=== PATIENT | male | born 1945 | race Caucasian/White ===

== ENCOUNTER 2020-08-16 17:13 | Inpatient (IN) ==
--- NOTE | 2020-08-16 17:50 | DR.DIZZY ---
HPI Time seen Time Seen by Provider: 08/16/20 17:50 PCP Primary Care Physician: MELVI HPI Comment HPI Comment: PATIENT IS 74YR OLD MALE WHO IS VOVID 19 POSITIVE IS IN ER WITH AMS, GENERALIZED WEAKNESS AND FATIGUE TIMES Complaint Chief Complaint Doctor Comments: AMS, GENERALIZED WEAKNESS AND COVID 19 POSITIVE. Chief Complaint:: PT'S FAMILY C/O PT HAS BEEN VERY LETHARGIC, WEAK TODAY. PT'S FAMILY STATES HE WAS ESTED ON Jul AND WAS POSITIVE. PT'S DAUGHTER STATES HIS MEMORY IS GETTING WORSE AND HE HAS STAGE 4 KIDNEY FAILURE. COVID-19 Coronavirus risk:travel/contact w/high risk person: No Has patient experienced Coronavirus symptoms: No Nurses Notes Reviewed Nurses Notes Review: Yes Source History Provided: Patient Mode of Arrival Mode of Arrival: Ambulatory Timing Onset of Chief Complaint: 08/15/20 Came on: Suddenly Duration Duration: Constant Duration: Days Location of Weakness Weakness Location: Generalized Context Onset: At rest Does pt take pot. toxic medication?: No Severity Severity: Normal activity level Modifying factors Worsens: Change in Position Associated signs and symptoms Associated Signs and Symptoms: Near Syncope and Weak PMH PMH Past Medical History: Yes Past Medical History: COPD, Dyslipidemia, GERD, Hypertension, Renal Disease and Sleep Apnea Past Surgical History: Yes Surgical History: Angioplasty/Stents Family History History of Family Medical Conditions: No Social History Does any household member use tobacco: Yes Alcohol Use: None Do you use any recreational Drugs:: No Lives With: Alone Lives Where: Home Travel Risk Coronavirus risk:travel/contact w/high risk person: No Has patient experienced Coronavirus symptoms: No Infectious screening In the last 2 months have you had wt loss of >10#?: NO Have you had fever, night sweats or hemotysis?: No Have you traveled outside the country in the last 6 months?: No Isolation: Standard ROS Review of Systems Constitutional: No Symptoms Reported and See HPI Eyes: No Symptoms Reported and See HPI ENTM: No Symptoms Reported and See HPI Respiratoy: No Symptoms Reported and See HPI Cardiovascular: No Symptoms Reported and See HPI Gastrointestinal/Abdominal: No Symptoms Reported and See HPI Genitourinary: No Symptoms Reported and See HPI Neurological: No Symptoms Reported and See HPI Musculoskeletal: No Symptoms Reported and See HPI Integumentary: No Symptoms Reported and See HPI Hematologic/Lymphatic: No Symptoms Reported and See HPI Endocrine: No Symptoms Reported and See HPI Psychiatric: No Symptoms Reported and See HPI All Other Systems: Reviewed and Negative PE Vital Signs Vitals: Temperature 97.6 F Pulse Rate 63 Respiratory Rate 24 Blood Pressure 137/69 O2 Sat by Pulse Oximetry 96 General Limitations: No Limitations General Appearance: Alert and In No Apparent Distress Head Head Exam: Normal Inspection Eyes Eye exam: Normal Appearance ENT ENT Exam: Normal Exam, Normal Oropharynx and Normal External Ear Exam Neck Neck Exam: Normal Inspection and Full ROM Chest Chest Inspection: Normal Inspection Respiratory Respiratory Exam: Normal Lung Sounds Bilat Cardiovascular Cardiovascular Exam: Regular Rate and Normal Rhythm Abdominal Exam Abdominal Exam: Normal Inspection, Normal Bowel Sounds and Soft Rectal Rectal Exam: Deferred Extremeties Extremities Exam: Normal Inspection and Full ROM Back Back Exam: Normal Inspection and Full ROM Neurologic Neurological Exam: Alert and Oriented X3 Psychiatric Psychiatric Exam: Normal Affect and Normal Mood Skin Skin Exam: Warm, Dry, Intact and Normal Color ROR Labs Reviewed Result Diagrams: 08/18/20 04:40 08/18/20 04:40 Laboratory: 08/16/20 20:24 Blood Blood Culture - Preliminary 08/16/20 20:20 Blood Blood Culture - Preliminary 08/16/20 20:30 Urine,Clean Catch Urine Culture - Final WBC 20.5 X10^3/uL (3.6-10.0) H 08/16/20 18:37 RBC 4.54 X10^6/uL (4.7-6.0) L 08/16/20 18:37 Hgb 13.2 g/dL (13.5-18.0) L 08/16/20 18:37 Hct 39.9 % (42.0-54.0) L 08/16/20 18:37 MCV 87.8 fL (80.0-100.0) 08/16/20 18:37 MCH 29.0 pg (27.0-34.0) 08/16/20 18:37 MCHC 33.0 g/dL (33.0-35.0) 08/16/20 18:37 RDW 14.1 % (11.6-16.5) 08/16/20 18:37 Plt Count 197 X10^3/uL (150.0-450.0) 08/16/20 18:37 MPV 8.3 fL (7.4-11.0) 08/16/20 18:37 Neut % (Auto) 89.0 % (42.0-75.0) H 08/16/20 18:37 Lymph % (Auto) 5.0 % (21.0-51.0) L 08/16/20 18:37 [place] % (Auto) 5.6 % (0.0-13.0) 08/16/20 18:37 Eos % (Auto) 0.1 % (0.9-2.9) L 08/16/20 18:37 Baso % (Auto) 0.3 % (0.2-1.0) 08/16/20 18:37 Neut # (Auto) 18.2 x10^3/uL (2.2-4.8) H 08/16/20 18:37 Lymph # (Auto) 1.0 X10^3/uL (1.3-2.9) L 08/16/20 18:37 [place] # (Auto) 1.1 x10^3/uL (0.3-0.8) H 08/16/20 18:37 Eos # (Auto) 0.0 x10^3/uL (0.0-0.2) 08/16/20 18:37 Baso # (Auto) 0.1 X10^3/uL (0.0-0.1) 08/16/20 18:37 Absolute Nucleated RBC 0.0 /100WBC 08/16/20 18:37 Sample Site Lr 08/16/20 20:15 ABG pH 7.390 (7.35-7.45) 08/16/20 20:15 ABG pCO2 28.0 mmHg (35.0-45.0) L 08/16/20 20:15 ABG pO2 85.0 mmHg (80.0-100.0) 08/16/20 20:15 ABG HCO3 16.9 mmol/L (22-26) L* 08/16/20 20:15 ABG O2 Saturation 96.0 % (90-100) 08/16/20 20:15 ABG Base Excess -6.7 mmol/L (-2.0-2.0) L 08/16/20 20:15 Vinnie Test Pos 08/16/20 20:15 A-a Gradient 80.0 mmHg 08/16/20 20:15 FiO2 28.0 08/16/20 20:15 Blood Gas Comments Sriram well sw 08/16/20 20:15 Sodium 141 mmol/L (136-145) 08/16/20 18:37 Corrected Sodium 142 mmol/L (136-145) 08/16/20 18:37 Potassium 5.4 mmol/L (3.5-5.1) H 08/16/20 18:37 Chloride 106 mmol/L (98-107) 08/16/20 18:37 Carbon Dioxide 21.1 mmol/L (21-32) 08/16/20 18:37 BUN 74 mg/dL (7-18) H 08/16/20 18:37 Creatinine 4.21 mg/dL (0.70-1.30) H 08/16/20 18:37 Est GFR (MDRD) Af Amer 18 (>60) L 08/16/20 18:37 Est GFR (MDRD) Non-Af 15 (>60) L 08/16/20 18:37 Glucose 130 mg/dL (65-99) H 08/16/20 18:37 Lactic Acid 1.5 mmol/L (0.4-2.0) 08/16/20 20:20 Calcium 9.2 mg/dL (8.5-10.1) 08/16/20 18:37 Corrected Calcium 10.7 mg/dL (8.5-10.1) H 08/16/20 18:37 Ferritin 2701 ng/mL (26-388) H 08/16/20 18:37 Total Bilirubin 0.90 mg/dL (0.2-1.0) 08/16/20 18:37 AST 25 Units/L (15-37) 08/16/20 18:37 ALT 55 Units/L (12-78) 08/16/20 18:37 Alkaline Phosphatase 214 Units/L (46-116) H 08/16/20 18:37 Lactate Dehydrogenase 341 Units/L (85-227) H 08/16/20 18:37 Creatine Kinase 21 Units/L (39-308) L 08/16/20 18:37 CK-MB (CK-2) < 1.0 ng/mL (0-4.0) 08/16/20 18:37 CK/CKMB % Calc 4.8 % (<4) 08/16/20 18:37 Troponin I < 0.02 ng/mL (0-1.5) 08/16/20 18:37 C-Reactive Protein 202.60 mg/L (0-3.0) H 08/16/20 18:37 Total Protein 7.0 g/dL (6.4-8.2) 08/16/20 18:37 Albumin 2.1 g/dL (3.4-5.0) L 08/16/20 18:37 Globulin 4.9 g/dL (2.5-4.5) H 08/16/20 18:37 Albumin/Globulin Ratio 0.4 Ratio (1.1-2.1) L 08/16/20 18:37 Specimen Type Clean catch urine 08/16/20 20:30 Urine Color Dark yellow (YELLOW) 08/16/20 20:30 Urine Appearance Slightly hazy (CLEAR) 08/16/20 20:30 Urine pH 5.0 (5.0 - 8.0) 08/16/20 20:30 Ur Specific [place] 1.020 (1.000-1.030) 08/16/20 20:30 Urine Protein 2+ (NEGATIVE) 08/16/20 20:30 Urine Glucose (UA) Negative (NEGATIVE) 08/16/20 20:30 Urine Ketones Negative (NEGATIVE) 08/16/20 20:30 Urine Occult Blood 1+ (NEGATIVE) 08/16/20 20:30 Urine Nitrite Negative (NEGATIVE) 08/16/20 20:30 Urine Bilirubin Negative (NEGATIVE) 08/16/20 20:30 Urine Urobilinogen Normal (NORMAL) 08/16/20 20:30 Ur Leukocyte Esterase 3+ (NEGATIVE) 08/16/20 20:30 Urine RBC 5-10 /HPF (0-3) A 08/16/20 20:30 Urine WBC 20-30 /HPF (0-5) A 08/16/20 20:30 Ur Squamous Epith Cells Rare /HPF (NEGATIVE) 08/16/20 20:30 Amorphous Sediment 1+ /HPF (NEGATIVE) 08/16/20 20:30 Urine Bacteria 1+ /HPF (NEGATIVE) 08/16/20 20:30 Ur Culture Indicated? Yes/culture set up 08/16/20 20:30 Opioid Opioid Risk Tool Age (Rober box if 16-45): No History of Preadolescent Sexual Abuse: No Total: 0 Total Score Risk Category: Low Risk Copyright: Keaton MANTILLA predicting aberrant behaviors Instructions Forms: Precautions for COVID19 Patient Portal Social Distancing
[2020-08-16 18:48] LABS: BASOPHILS # (AUTO) 0.1 X10^3/uL (0.0-0.1); BASOPHILS % (AUTO) 0.3 % (0.2-1.0); EOSINOPHILS % (AUTO) 0.1 % (0.9-2.9); HEMATOCRIT 39.9 % (42.0-54.0); HEMOGLOBIN 13.2 g/dL (13.5-18.0); MEAN CORPUSCULAR VOLUME 87.8 fL (80.0-100.0); MEAN PLATELET VOLUME 8.3 fL (7.4-11.0); MONOCYTES # (AUTO) 1.1 x10^3/uL (0.3-0.8); MONOCYTES % (AUTO) 5.6 % (0.0-13.0); NEUTROPHILS # (AUTO) 18.2 x10^3/uL (2.2-4.8); PLATELET COUNT 197 X10^3/uL (150.0-450.0); RED BLOOD COUNT 4.54 X10^6/uL (4.7-6.0); RED CELL DISTRIBUTION WIDTH 14.1 % (11.6-16.5); WHITE BLOOD COUNT 20.5 X10^3/uL (3.6-10.0)
--- NOTE | 2020-08-16 18:55 | RAD ---
CHEST, 1 VIEWHISTORY: SOB, COVID +Study: AP view of the chest.Comparison:NoneFindings:The cardiomediastinal silhouette is normal. Peripheral opacities most notable involving the right lung. Multiple old left-sided rib fractures. Osseous structures demonstrate no acute abnormality. Bilateral hyperexpansion and interstitial prominence.IMPRESSION:1. Hazy peripheral right-sided opacities which may represent acute atypical infection.2. Findings of COPD.Electronically signed by: GELA MILLER (Aug 16, 2020 18:54:33)
--- NOTE | 2020-08-16 18:58 | CT ---
BRAIN W/O CONCLINICAL INDICATION: AMSTECHNIQUE: Images were obtained through the head per standard CT protocol. Multiplanar reformatted images were generated from the CT dataset. Dose reduction techniques including Automated Exposure Control (AEC) and adjustment of mA and kV were utlized.COMPARISON:None.FINDINGS:Diffuse patchy and confluent periventricular and subcortical hypoattenuation with associated volume loss. There is no evidence of acute infarction, intracranial hemorrhage, mass or mass effect, or abnormal extra-axial collection . The density of the larger dural venous sinuses is normal . Age-related, ex-vacuo dilatation of the ventricles and sulci . The skull base and calvarium are normal .The included paranasal sinuses and mastoid air cells are predominantly clear .IMPRESSION:1. No acute intracranial abnormality. Chronic microangiopathic changes and ex vacuo dilatation of the ventricles and sulci.Electronically signed by: GELA MILLER (Aug 16, 2020 18:57:08)
[2020-08-16] MEDS ORDERED: NS 1000 ML 1,000 ML ONE (20:05)
[2020-08-16 20:20] LABS: BLOOD UREA NITROGEN 74 mg/dL (7-18); CALCIUM 9.2 mg/dL (8.5-10.1); CARBON DIOXIDE 21.1 mmol/L (21-32); CHLORIDE 106 mmol/L (98-107); COR NA(FOR HYPERGLY) 142 mmol/L (136-145); CREATININE 4.21 mg/dL (0.70-1.30); SODIUM 141 mmol/L (136-145); TROPONIN I < 0.02 ng/mL (0-1.5); eGFR NON BLACK RACES 15 (>60)
[2020-08-16 20:24] LABS: ALANINE AMINOTRANSFERASE 55 Units/L (12-78); ALBUMIN 2.1 g/dL (3.4-5.0); ALKALINE PHOSPHATASE 214 Units/L (46-116); ASPARTATE AMINO TRANSFERASE 25 Units/L (15-37); CKMB % 4.8 % (<4); COR CA(FOR HYPOALB) 10.7 mg/dL (8.5-10.1); CREATINE KINASE 21 Units/L (39-308); CREATINE KINASE MB < 1.0 ng/mL (0-4.0)
[2020-08-16 20:47] LABS: BILIRUBIN,URINE NEGATIVE (NEGATIVE); BLOOD/HEMOGLOBIN,URINE 1+ (NEGATIVE); GLUCOSE, URINE NEGATIVE (NEGATIVE); KETONES,URINE NEGATIVE (NEGATIVE); LEUKOCYTE ESTERASE ,URINE 3+ (NEGATIVE); NITRITES,URINE NEGATIVE (NEGATIVE); PROTEIN,URINE 2+ (NEGATIVE); UROBILINOGEN,URINE NORMAL (NORMAL)
[2020-08-16 20:55] LABS: APPEARANCE,URINE SLIGHTLY HAZY (CLEAR); COLOR,URINE DARK YELLOW (YELLOW)
[2020-08-16 20:58] LABS: AMORPHOUS SEDIMENT,UR 1+ /HPF (NEGATIVE); BACTERIA,URINE 1+ /HPF (NEGATIVE); SQUAMOUS EPITHELIAL CELL,UR RARE /HPF (NEGATIVE)
[2020-08-16] MEDS ORDERED: NS 1000 ML 1,000 ML IV SCH (21:00)
[2020-08-16 21:16] LABS: ABG BASE EXCESS -6.7 mmol/L (-2.0-2.0)
[2020-08-16 21:17] LABS: ABG HCO3 16.9 mmol/L (22-26)
[2020-08-16 21:18] LABS: ABG ALLEN TEST POS
[2020-08-16] MEDS ORDERED: VANCOMYCIN IV *PREMIX 1 G/200 ML BAG 1 G/200 ML PIGGYBACK IV ONE (22:09)
[2020-08-16] MEDS ORDERED: VANCOMYCIN HCL ONE (23:46)
[2020-08-16] MEDS ORDERED: NS 250 ML IV 250 ML IV ONE (23:46)
[2020-08-17] MEDS: VIBRAMYCIN 100 MG in D5W 250 ML IV 250 ML IV SCH ×3 (00:10→21:44)
[2020-08-17] MEDS: NS 1000 ML 1,000 ML IV SCH ×3 (00:31→19:45)
[2020-08-17] MEDS ORDERED: VENTOLIN or PROAIR HFA ONE (00:48)
[2020-08-17] MEDS ORDERED: VENTOLIN or PROAIR HFA IN PRN (00:54)
[2020-08-17 01:07] VITALS: BMI 28.9
[2020-08-17 05:24] LABS: BASOPHILS % (AUTO) 0.2 % (0.2-1.0); EOSINOPHILS # (AUTO) 0.1 x10^3/uL (0.0-0.2); EOSINOPHILS % (AUTO) 0.4 % (0.9-2.9); HEMATOCRIT 35.4 % (42.0-54.0); HEMOGLOBIN 11.4 g/dL (13.5-18.0); LYMPHOCYTES # (AUTO) 0.9 X10^3/uL (1.3-2.9); MEAN CORPUSCULAR HEMOGLOBIN 28.9 pg (27.0-34.0); MEAN CORPUSCULAR HGB CONC 32.3 g/dL (33.0-35.0); MEAN CORPUSCULAR VOLUME 89.3 fL (80.0-100.0); MEAN PLATELET VOLUME 8.7 fL (7.4-11.0); MONOCYTES % (AUTO) 5.6 % (0.0-13.0); NEUTROPHILS # (AUTO) 15.3 x10^3/uL (2.2-4.8); NEUTROPHILS % (AUTO) 88.8 % (42.0-75.0); PLATELET COUNT 171 X10^3/uL (150.0-450.0); RED BLOOD COUNT 3.96 X10^6/uL (4.7-6.0); RED CELL DISTRIBUTION WIDTH 14.3 % (11.6-16.5); WHITE BLOOD COUNT 17.2 X10^3/uL (3.6-10.0)
[2020-08-17 05:44] LABS: ALBUMIN 1.8 g/dL (3.4-5.0); CALCIUM 8.7 mg/dL (8.5-10.1); CARBON DIOXIDE 18.6 mmol/L (21-32); COR CA(FOR HYPOALB) 10.5 mg/dL (8.5-10.1); CREATININE 3.92 mg/dL (0.70-1.30); TOTAL PROTEIN 6.3 g/dL (6.4-8.2)
[2020-08-17] MEDS ORDERED: NS 1000 ML 1,000 ML IV ONE (09:06)
[2020-08-17] MEDS: VSL#3 PO SCH (09:32)
[2020-08-17] MEDS ORDERED: TYLENOL 325 MG TAB PO PRN (09:33)
[2020-08-17] MEDS: PEPCID TAB 20 MG PO SCH (10:02)
[2020-08-17] MEDS: NORVASC TAB 5 MG PO SCH (10:02)
[2020-08-17] MEDS: FLOMAX PO SCH (10:03)
[2020-08-17] MEDS: COREG TAB 12.5 MG PO SCH ×2 (10:03→21:44)
[2020-08-17] MEDS: LOVENOX INJ 30 MG SYR SC SCH (10:03)
[2020-08-17 18:15] LABS: CALCIUM 8.8 mg/dL (8.5-10.1); CARBON DIOXIDE 21.9 mmol/L (21-32); CREATININE 3.48 mg/dL (0.70-1.30)
[2020-08-17] MEDS ORDERED: CHLORASEPTIC SPRAY MT PRN (20:02)
[2020-08-17] MEDS: BRILINTA PO SCH (21:35)
[2020-08-18] MEDS: NS 1000 ML 1,000 ML IV SCH ×2 (03:20→07:07)
[2020-08-18 04:57] LABS: BASOPHILS % (AUTO) 0.2 % (0.2-1.0); EOSINOPHILS # (AUTO) 0.1 x10^3/uL (0.0-0.2); HEMATOCRIT 36.8 % (42.0-54.0); HEMOGLOBIN 12.1 g/dL (13.5-18.0); LYMPHOCYTES # (AUTO) 0.9 X10^3/uL (1.3-2.9); LYMPHOCYTES % (AUTO) 8.6 % (21.0-51.0); MEAN CORPUSCULAR HEMOGLOBIN 29.4 pg (27.0-34.0); MEAN CORPUSCULAR VOLUME 89.1 fL (80.0-100.0); MEAN PLATELET VOLUME 8.6 fL (7.4-11.0); MONOCYTES # (AUTO) 0.7 x10^3/uL (0.3-0.8); MONOCYTES % (AUTO) 7.4 % (0.0-13.0); NEUTROPHILS # (AUTO) 8.2 x10^3/uL (2.2-4.8); NEUTROPHILS % (AUTO) 82.8 % (42.0-75.0); PLATELET COUNT 184 X10^3/uL (150.0-450.0); RED BLOOD COUNT 4.13 X10^6/uL (4.7-6.0); RED CELL DISTRIBUTION WIDTH 14.5 % (11.6-16.5); WHITE BLOOD COUNT 9.9 X10^3/uL (3.6-10.0)
[2020-08-18 05:06] LABS: ALANINE AMINOTRANSFERASE 52 Units/L (12-78); ALBUMIN 1.8 g/dL (3.4-5.0); ALKALINE PHOSPHATASE 217 Units/L (46-116); ASPARTATE AMINO TRANSFERASE 31 Units/L (15-37); BLOOD UREA NITROGEN 67 mg/dL (7-18); CALCIUM 8.7 mg/dL (8.5-10.1); CARBON DIOXIDE 20.8 mmol/L (21-32); CHLORIDE 113 mmol/L (98-107); COR CA(FOR HYPOALB) 10.5 mg/dL (8.5-10.1); CREATININE 3.47 mg/dL (0.70-1.30); SODIUM 132 mmol/L (136-145); TOTAL PROTEIN 6.3 g/dL (6.4-8.2); eGFR NON BLACK RACES 18 (>60)
[2020-08-18 05:39] LABS: PLATELET MORPHOLOGY COMMENT NORMAL (NORMAL)
[2020-08-18] MEDS: VSL#3 PO SCH (08:07)
[2020-08-18] MEDS: COREG TAB 12.5 MG PO SCH ×2 (08:07→21:05)
[2020-08-18] MEDS: VIBRAMYCIN 100 MG in D5W 250 ML IV 250 ML IV SCH ×2 (08:07→21:00)
[2020-08-18] MEDS: NORVASC TAB 5 MG PO SCH (08:08)
[2020-08-18] MEDS: FLOMAX PO SCH (08:08)
[2020-08-18] MEDS: LOVENOX INJ 30 MG SYR SC SCH (08:09)
[2020-08-18] MEDS: PEPCID TAB 20 MG PO SCH (08:09)
[2020-08-18] MEDS: BRILINTA PO SCH ×2 (08:10→21:00)
[2020-08-18] MEDS ORDERED: NS 1000 ML 1,000 ML IV ONE (08:13)
[2020-08-18] MEDS: VENTOLIN or PROAIR HFA IN PRN ×2 (09:40→14:00)
[2020-08-19] MEDS: NS 1000 ML 1,000 ML IV SCH ×6 (02:05→23:48)
[2020-08-19 05:31] LABS: ALANINE AMINOTRANSFERASE 43 Units/L (12-78); ALBUMIN 1.7 g/dL (3.4-5.0); ALKALINE PHOSPHATASE 196 Units/L (46-116); ASPARTATE AMINO TRANSFERASE 25 Units/L (15-37); BLOOD UREA NITROGEN 52 mg/dL (7-18); CALCIUM 8.6 mg/dL (8.5-10.1); CARBON DIOXIDE 16.8 mmol/L (21-32); COR CA(FOR HYPOALB) 10.4 mg/dL (8.5-10.1); CREATININE 3.15 mg/dL (0.70-1.30); SODIUM 145 mmol/L (136-145); TOTAL PROTEIN 5.8 g/dL (6.4-8.2); eGFR NON BLACK RACES 21 (>60)
[2020-08-19 05:33] LABS: CHLORIDE 116 mmol/L (98-107)
[2020-08-19 05:34] LABS: BASOPHILS % (AUTO) 0.4 % (0.2-1.0); EOSINOPHILS # (AUTO) 0.1 x10^3/uL (0.0-0.2); EOSINOPHILS % (AUTO) 1.2 % (0.9-2.9); HEMOGLOBIN 11.3 g/dL (13.5-18.0); LYMPHOCYTES % (AUTO) 12.1 % (21.0-51.0); MEAN CORPUSCULAR HEMOGLOBIN 29.1 pg (27.0-34.0); MEAN CORPUSCULAR HGB CONC 32.2 g/dL (33.0-35.0); MEAN CORPUSCULAR VOLUME 90.2 fL (80.0-100.0); MEAN PLATELET VOLUME 8.8 fL (7.4-11.0); MONOCYTES # (AUTO) 0.8 x10^3/uL (0.3-0.8); MONOCYTES % (AUTO) 10.1 % (0.0-13.0); NEUTROPHILS # (AUTO) 6.3 x10^3/uL (2.2-4.8); NEUTROPHILS % (AUTO) 76.2 % (42.0-75.0); PLATELET COUNT 189 X10^3/uL (150.0-450.0); RED BLOOD COUNT 3.87 X10^6/uL (4.7-6.0); RED CELL DISTRIBUTION WIDTH 14.1 % (11.6-16.5); WHITE BLOOD COUNT 8.3 X10^3/uL (3.6-10.0)
[2020-08-19 06:19] LABS: PLATELET MORPHOLOGY COMMENT NORMAL (NORMAL)
[2020-08-19] MEDS: COREG TAB 12.5 MG PO SCH ×2 (08:28→21:42)
[2020-08-19] MEDS: FLOMAX PO SCH (08:28)
[2020-08-19] MEDS: LOVENOX INJ 30 MG SYR SC SCH (08:29)
[2020-08-19] MEDS: NORVASC TAB 5 MG PO SCH (08:29)
[2020-08-19] MEDS: PEPCID TAB 20 MG PO SCH (08:30)
[2020-08-19] MEDS: BRILINTA PO SCH ×2 (08:30→21:42)
[2020-08-19] MEDS: VIBRAMYCIN 100 MG in D5W 250 ML IV 250 ML IV SCH ×2 (08:30→21:42)
[2020-08-19] MEDS: VSL#3 PO SCH (08:31)
[2020-08-19] MEDS: LR 1000 ML IV 1,000 ML IV ONE ×2 (11:20→11:30)
[2020-08-19 17:43] LABS: BLOOD UREA NITROGEN 45 mg/dL (7-18); CALCIUM 8.5 mg/dL (8.5-10.1); CARBON DIOXIDE 18.8 mmol/L (21-32); CHLORIDE 114 mmol/L (98-107); CREATININE 2.77 mg/dL (0.70-1.30); SODIUM 144 mmol/L (136-145); eGFR NON BLACK RACES 24 (>60)
[2020-08-19] MEDS ORDERED: LR 1000 ML IV 1,000 ML IV ONE (18:09)
[2020-08-19] MEDS: VENTOLIN or PROAIR HFA IN PRN (21:55)
[2020-08-20 05:21] LABS: BASOPHILS % (AUTO) 0.4 % (0.2-1.0); EOSINOPHILS # (AUTO) 0.1 x10^3/uL (0.0-0.2); HEMATOCRIT 35.8 % (42.0-54.0); HEMOGLOBIN 11.7 g/dL (13.5-18.0); LYMPHOCYTES % (AUTO) 15.2 % (21.0-51.0); MEAN CORPUSCULAR HGB CONC 32.8 g/dL (33.0-35.0); MEAN CORPUSCULAR VOLUME 88.6 fL (80.0-100.0); MEAN PLATELET VOLUME 8.4 fL (7.4-11.0); MONOCYTES # (AUTO) 0.7 x10^3/uL (0.3-0.8); MONOCYTES % (AUTO) 10.7 % (0.0-13.0); NEUTROPHILS # (AUTO) 4.9 x10^3/uL (2.2-4.8); NEUTROPHILS % (AUTO) 72.7 % (42.0-75.0); PLATELET COUNT 190 X10^3/uL (150.0-450.0); RED BLOOD COUNT 4.04 X10^6/uL (4.7-6.0); RED CELL DISTRIBUTION WIDTH 14.1 % (11.6-16.5); WHITE BLOOD COUNT 6.8 X10^3/uL (3.6-10.0)
[2020-08-20 05:29] LABS: ALANINE AMINOTRANSFERASE 48 Units/L (12-78); ALBUMIN 1.8 g/dL (3.4-5.0); ALKALINE PHOSPHATASE 178 Units/L (46-116); ASPARTATE AMINO TRANSFERASE 32 Units/L (15-37); BLOOD UREA NITROGEN 38 mg/dL (7-18); CALCIUM 8.6 mg/dL (8.5-10.1); CARBON DIOXIDE 20.5 mmol/L (21-32); CHLORIDE 114 mmol/L (98-107); COR CA(FOR HYPOALB) 10.4 mg/dL (8.5-10.1); CREATININE 2.72 mg/dL (0.70-1.30); SODIUM 144 mmol/L (136-145); TOTAL PROTEIN 5.9 g/dL (6.4-8.2); eGFR NON BLACK RACES 24 (>60)
[2020-08-20] MEDS: NS 1000 ML 1,000 ML IV SCH ×2 (05:37→08:54)
[2020-08-20 06:13] LABS: PLATELET MORPHOLOGY COMMENT NORMAL (NORMAL)
[2020-08-20 07:53] VITALS: BP 175/91
[2020-08-20] MEDS: FLOMAX PO SCH (08:54)
[2020-08-20] MEDS: COREG TAB 12.5 MG PO SCH (08:54)
[2020-08-20] MEDS: BRILINTA PO SCH (08:54)
[2020-08-20] MEDS: LOVENOX INJ 30 MG SYR SC SCH (08:54)
[2020-08-20] MEDS: VIBRAMYCIN 100 MG in D5W 250 ML IV 250 ML IV SCH (08:55)
[2020-08-20] MEDS: PEPCID TAB 20 MG PO SCH (08:55)
[2020-08-20] MEDS: VSL#3 PO SCH (08:55)
[2020-08-20] MEDS: NORVASC TAB 5 MG PO SCH (08:55)
[2020-08-20] MEDS ORDERED: NS 1000 ML 1,000 ML IV ONE (08:59)
[2020-08-20] MEDS ORDERED: COREG TAB 25 MG PO SCH (09:00)
== END 2020-08-20 11:25 | disposition home or self-care (01) | DRG 690 ==
LOC: ER 17:21 → ICU 23:31
PROVIDERS: ADMIT Obstetrics & Gynecology Obstetrics; ATTEND Obstetrics & Gynecology Obstetrics